=== PATIENT | male | born 1995 | race African-American/Black ===

== ENCOUNTER 2020-07-21 18:00 | Emergency (ER) | payer BC ==
[2020-07-21 18:11] VITALS: BP 139/66; PULSE 74; TEMP 98; BMI 25.8
[2020-07-21] MEDS ORDERED: KETOROLAC TROMETHAMINE 30 MG/1 ML VIAL IM ONE (18:27)
[2020-07-21] MEDS ORDERED: KETOROLAC TROMETHAMINE 30 MG/1 ML VIAL ONE (18:28)
== END 2020-07-21 19:24 | disposition home or self-care (01) ==
LOC: JER 18:00
PROC: 3E0233Z Introduction of Anti-inflammatory into Muscle, Percutaneous Approach (ICD-10-PCS; principal; 2020-07-21)
DX: M54.5 Low back pain (principal)
CPT/HCPCS: 72100-TC-FY; 73110-TC-LT-FY; 73130-TC-LT-FY; 99284-25

== ENCOUNTER 2024-09-20 14:08 | Emergency (ER) | payer BC, OTHER ==
[2024-09-20 14:14] VITALS: BP 126/77; PULSE 86; RESP 18; TEMP 100; BMI 28.5
[2024-09-20] MEDS: IBUPROFEN 600 MG TABLET (FP) PO ONE (14:59)
[2024-09-20] MEDS ORDERED: IBUPROFEN 600 MG TABLET (FP) PO ONE (15:00)
== END 2024-09-20 15:51 | disposition home or self-care (01) ==
LOC: JER 14:08 → JERFT 14:08
DX: J10.1 Influenza due to other identified influenza virus with other respiratory manifestations (principal); R05.9 Cough, unspecified; M79.10 Myalgia, unspecified site; R51.9 Headache, unspecified
CPT/HCPCS: 0241U-QW; 87651; 99283-25